=== PATIENT | female | born 2000 | race Caucasian/White ===

== ENCOUNTER 2022-06-01 11:50 | Emergency (ER) | payer SELFPAY ==
[~2022-06-01] VITALS: Ht 165.1 cm; Wt 61.0 kg
[2022-06-01 12:02] VITALS: BP 136/87
[2022-06-01] MEDS ORDERED: IBUPROFEN 600MG TABLET PO ONE (12:30)
[2022-06-01] MEDS ORDERED: IBUPROFEN 600MG TABLET PO NR (14:30)
== END 2022-06-01 14:54 | disposition home or self-care (01) ==
LOC: ER 12:41
DX: S80.11XA Contusion of right lower leg, initial encounter (principal); W19.XXXA Unspecified fall, initial encounter; Y93.89 Activity, other specified; Y92.89 Other specified places as the place of occurrence of the external cause; Y99.8 Other external cause status
CPT/HCPCS: 73590; 73610; 81025; 99284